=== PATIENT | female | born 1970 | race Two or more races ===

== ENCOUNTER 2022-09-30 12:22 | Emergency (ER) | payer OTHER ==
[~2022-09-30] VITALS: Ht 154.9 cm; Wt 81.0 kg
[2022-09-30 13:28] LABS: Urine Bacteria NONE SEEN /hpf (None Seen); Urine Blood Negative /uL (Negative); Urine Mucus FEW (None Seen); Urine WBC 3 /hpf (0 - 5)
[2022-09-30 13:31] VITALS: BP 152/90
[2022-09-30] MEDS ORDERED: KETOROLAC TROMETH 60MG/2ML VIAL IM ONE (13:45)
[2022-09-30 14:32] LABS: Basophils # (auto) 0 10 ^3/uL (0-0.2); Basophils % (auto) 0.6 % (0.0-2.0); Eosinophils # (auto) 0.1 10 ^3/uL (0-0.8); Eosinophils % (auto) 1.3 % (0.0-7.0); Hematocrit 40.5 % (36.0-46.0); Hemoglobin 14.2 g/dL (12.2-16.2); Lymphocytes % (auto) 41.5 % (10.0-50.0); Mean Corpuscular Hemoglobin 30.3 pg (28.0-32.0); Mean Corpuscular Hgb Conc. 35.1 g/dL (32.0-36.0); Mean Corpuscular Volume 86.3 fL (80.0-100.0); Monocytes # (auto) 0.5 10 ^3/uL (0-1.3); Monocytes % (auto) 6.3 % (0.0-12.0); Neutrophils # (auto) 3.6 10 ^3/uL (1.6-8.6); Neutrophils % (auto) 50.3 % (37.0-80.0); Nucleated Red Blood Cells % 0.1 %; Red Blood Cells 4.69 10^6/uL (4.0-5.20); Red Cell Distribution Width 13.8 % (11.8-14.3); White Blood Cell 7.2 10^3/uL (4.4-10.8)
[2022-09-30 14:42] LABS: BUN/Creatinine Ratio 12.9 (10.0-20.0); Potassium 3.7 mmol/L (3.5-5.1)
[2022-09-30] MEDS ORDERED: CIPR-173 PO (15:18)
[2022-09-30] MEDS ORDERED: METH750T22 PO (15:18)
[2022-09-30] MEDS ORDERED: IBUP800T27 PO (15:18)
== END 2022-09-30 15:32 | disposition home or self-care (01) ==
LOC: ER 12:22
DX: S39.012A Strain of muscle, fascia and tendon of lower back, initial encounter (principal); N30.00 Acute cystitis without hematuria; Z79.899 Other long term (current) drug therapy; X58.XXXA Exposure to other specified factors, initial encounter; Y93.89 Activity, other specified; Y92.89 Other specified places as the place of occurrence of the external cause; Y99.8 Other external cause status
CPT/HCPCS: 36415; 72100; 74176; 80048; 81001; 85025; 96372; 99285; J1885

== ENCOUNTER 2023-03-16 07:54 | Emergency (ER) | payer MEDICAID, OTHER ==
[~2023-03-16] VITALS: Ht 157.5 cm; Wt 81.0 kg
[~2023-03-16 07:54] MED LIST: CIPR-173 PO; IBUP-1456 PO; METH-1182 PO
[2023-03-16 09:01] VITALS: BP 143/76; PULSE 60; RESP 18; TEMP 97.4; O2SAT 98
== END 2023-03-16 09:47 | disposition home or self-care (01) ==
LOC: ER 07:54
DX: S66.811A Strain of other specified muscles, fascia and tendons at wrist and hand level, right hand, initial encounter (principal); Z79.899 Other long term (current) drug therapy; X58.XXXA Exposure to other specified factors, initial encounter; Y93.89 Activity, other specified; Y92.89 Other specified places as the place of occurrence of the external cause; Y99.8 Other external cause status
CPT/HCPCS: 29125; 73110

== ENCOUNTER 2023-05-23 06:14 | Emergency (ER) | payer MEDICAID ==
[~2023-05-23] VITALS: Ht 152.4 cm; Wt 84.2 kg
[2023-05-23 06:55] VITALS: BP 141/88; PULSE 74; RESP 20; TEMP 97.6; O2SAT 97
[2023-05-23] MEDS ORDERED: methylPREDNISolone SOD SUCC 125 MG/2 ML VL IV ONE (07:15)
[2023-05-23] MEDS ORDERED: FAMOTIDINE 20 MG TAB PO ONE (07:15)
[2023-05-23] MEDS ORDERED: diphenhdrAMINE HCL 50 MG/1 ML VL IV ONE (07:15)
[2023-05-23] MEDS ORDERED: LORA-622 PO (07:29)
[2023-05-23] MEDS ORDERED: CALA1SUS2 EX (07:29)
[2023-05-23] MEDS ORDERED: METH4PAK PO (07:29)
== END 2023-05-23 10:35 | disposition home or self-care (01) ==
LOC: ER 06:14
DX: T78.2XXA Anaphylactic shock, unspecified, initial encounter (principal); Z79.2 Long term (current) use of antibiotics; Z79.899 Other long term (current) drug therapy
CPT/HCPCS: 96374; 96375; 99284; J1200; J2930

== ENCOUNTER 2025-03-21 15:29 | Emergency (ER) | payer MEDICAID ==
[~2025-03-21] VITALS: Ht 157.5 cm; Wt 84.0 kg
[~2025-03-21 15:29] MED LIST changes: +CALA1SUS2 EX; +LORA-622 PO; +METH4PAK PO
[2025-03-21 16:10] LABS: Hematocrit 41.8 % (36.0-46.0); Hemoglobin 14.7 g/dL (12.2-16.2); Mean Corpuscular Hemoglobin 29.8 pg (28.0-32.0); Mean Corpuscular Volume 84.8 fL (80.0-100.0); Nucleated Red Blood Cells % 0.2 %
--- NOTE | 2025-03-21 16:12 | ED.PDOC ---
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 Patient reports that she has been experiencing light vaginal spotting for the past week after sexual intercourse. Patient relays that her LMP was in 2018 after a total hysterectomy. Patient states that her bleeding will go from red to pink in color and is heavier with heavy lifting. Patient notes she has associated pelvic pressure pain at this time. Patient denies any history of STI, dizziness, headache, N/V, SOB, dysuria, or syncope. Initial Vitals BP: 150/92 HR: 74 RR: 16 O2: 98% Temp: 97.8F Past Medical History: Asthma Past Surgical History: Hysterectomy 2018, Appendectomy, Breast Augmentation Social History: Denies ETOH, smoking, and drug use. Medications: Reviewed Allergies: NKDA HPI: Poor Historian. REVIEW OF SYSTEMS: CONSTITUTIONAL: Denies acute: fever, diaphoresis, chills, generalized weakness. HEAD: Denies acute: headache, photophobia Eyes: Denies acute: Double vision, vision loss, eye pain, eye discharge. EARS: Denies acute: tinnitus, hearing loss, ear discharge, ear pain, THROAT: Denies acute: sore throat, swelling, difficulty swallowing , pain with swallowing, change in voice. NECK: Denies acute: neck pain, neck swelling, stiff neck. HEART: Denies acute : chest pain, palpitations, LUNGS: Denies acute: SOB, wheezing, cough, hemoptysis ABDOMEN: Denies acute: abdominal pain, Nausea, Vomiting, diarrhea, melena , hematemesis, hematochezia SKIN: Denies acute: rash, redness, lesions, itchiness. EXTREMITIES: Denies acute: calf pain, numbness, tingling, weakness, denies pain in extremity. Denies acute: Low back pain. Neuro: Denies acute: focal neurological deficit, motor or sensory focal neurological deficit, tremors, seizure like activity, confusion, dizziness, change in mental status, loss of bowel or bladder function, cauda equina like symptoms. : Denies acute: dysuria, hematuria, flank pain, increase in urinary frequency. PSYCH: Denies acute: hallucination, suicidal ideation, homicidal ideation. FEMALE: Denies acute: foul odor, unusual discharge. PHYSICAL EXAM: General: ----mild----acute distress, awake and alert. Head: normocephalic, atraumatic. Neck: supple, trachea is midline, no swelling. Throat: Normal phonation. Eyes:, no erythema, no purulent discharge, no proptosis, no icterus. Heart: regular rate, regular rhythm, no significant murmur appreciated. Lungs: no apparent respiratory distress, Able to speak in full sentences. No wheezing, no rhonchi, no crackles. No stridors Clear to auscultation bilaterally. Abdomen: Suprapubic tender to palpation, non distended, soft, no guarding, no rebound, + bowel sounds. Neuro: Awake, Alert, oriented to name, self, situation, follows commands GCS=15. Speech is normal. Skin: no petechia, no purpura, no cyanosis, non-pale, not jaundice. Lower extremities: --no - Pitting edema no deformity, no focal swelling, no calf TTP. Makes eye contact. moves all four extremities. Face: no apparent facial droop. Ambulating in the ED independently. ED COURSE: DISCLAIMER: This medical document was created using an electronic medical record system with voice recognition software and computerized dictation system. Although this document has been carefully reviewed, there might still be some phonetic and typographical errors. Occasional wrong-word or "sound-alike" substitutions may have occurred due to the inherent limitations of voice recognition software. These areas are purely typographical due to imperfections of the software programs and do not reflect any compromise in the patient's medical care. Please read the chart carefully and recognize, using context, where these substitutions have occurred. Chief Complaint: Vaginal Bleed Time Seen by MD: 16:05 Reviewed Notes: Medications, Allergies Allergies: Coded Allergies: NO KNOWN ALLERGIES (Unverified , 09/30/22) Home Meds Active Scripts Nitrofurantoin Monohydrate Mac (Macrobid) 100 Mg Cap, 100 MG PO BID for 7 Days, #14 CAP Prov:TOMMY LAU DO 03/21/25 Calamine-Zinc Oxide (Calamine 8-8 %) 1 Olya Olya, 1 OLYA EX QIDPRN for 30 Days, #1 BOTTLE 0 Refills Prov:SISSY CARRION SENIOR ASP NET DEVELOPER 05/23/23 Loratadine (Claritin) 10 Mg Tab, 1 TAB PO DAILY, #30 TAB 0 Refills Prov:SISSY CARRION SENIOR ASP NET DEVELOPER 05/23/23 Methylprednisolone (Medrol Dosepak) 4 Mg Jesús, 4 MG PO UD, #21 TAB 0 Refills UAD Prov:SISSY CARRION SENIOR ASP NET DEVELOPER 05/23/23 Ciprofloxacin Hcl (Cipro) 500 Mg Tab, 1 TAB PO BID, #14 TAB Prov:FELICITY MUNROE 09/30/22 Methocarbamol (Methocarbamol) 750 Mg Tab, 750 MG PO QHSP PRN, #20 TAB Prov:FELICITY MUNROE 09/30/22 Ibuprofen (Ibuprofen) 800 Mg Tab, 1 TAB PO TID, #30 TAB Prov:FELICITY MUNROE 09/30/22 Information Source: Patient Mode of Arrival: Ambulatory Was a procedure done? Was a procedure done?: No X-Ray, Labs, Meds, VS Vital Signs Date Time Temp Pulse Resp B/P (MAP) Pulse Ox O2 Delivery O2 Flow Rate FiO2 03/21/25 15:32 97.8 74 16 150/92 98 97.8 Lab Test 03/21/25 16:17 03/21/25 15:55 Range/Units Urine Color Yellow Yellow Urine Clarity Turbid H Clear Urine pH 6.0 5.0-9.0 Urine Specific Stanton 1.030 1.001-1.035 Urine Protein 1+ H Negative Urine Ketones Negative Negative Urine Blood 2+ H Negative /uL Urine Nitrite Negative Negative Urine Bilirubin Negative Negative Urine Urobilinogen 2 H Negative mg/dL Urine Leukocyte Esterase 2+ Negative /uL Urine RBC 29 0 - 4 /hpf Urine Microscopic WBC 76 H 0-5 /HPF Urine Squamous Epithelial Cells Mod <5 /hpf Urine Calcium Oxalate Crystals Few None Seen Urine Bacteria None seen None Seen /hpf Urine Mucus Moderate None Seen Urine Glucose Normal Normal mg/dL White Blood Count 5.6 4.4-10.8 10^3/uL Red Blood Count 4.92 4.0-5.20 10^6/uL Hemoglobin 14.7 12.2-16.2 g/dL Hematocrit 41.8 36.0-46.0 % Mean Corpuscular Volume 84.8 80.0-100.0 fL Mean Corpuscular Hemoglobin 29.8 28.0-32.0 pg Mean Corpuscular Hemoglobin Concent 35.2 32.0-36.0 g/dL Red Cell Distribution Width 13.5 11.8-14.3 % Platelet Count 306 140-450 10^3/uL Mean Platelet Volume 6.7 L 6.9-10.8 fL Neutrophils (%) (Auto) 52.2 37.0-80.0 % Lymphocytes (%) (Auto) 38.3 10.0-50.0 % Monocytes (%) (Auto) 6.9 0.0-12.0 % Eosinophils (%) (Auto) 1.6 0.0-7.0 % Basophils (%) (Auto) 1.0 0.0-2.0 % Neutrophils # (Auto) 2.9 1.6-8.6 10 ^3/uL Lymphocytes # (Auto) 2.2 0.4-5.4 10 ^3/uL Monocytes # (Auto) 0.4 0-1.3 10 ^3/uL Eosinophils # (Auto) 0.1 0-0.8 10 ^3/uL Basophils # (Auto) 0.1 0-0.2 10 ^3/uL Nucleated Red Blood Cells 0.2 % Sodium Level 144 136-145 mmol/L Potassium Level 3.6 3.5-5.1 mmol/L Chloride Level 103 98-107 mmol/L Carbon Dioxide Level 31 20-31 mmol/L Anion Gap 10 5-15 Blood Urea Nitrogen 9 9-23 mg/dL Creatinine 0.87 0.550-1.02 mg/dL Glomerular Filtration Rate Calc 79 >90 mL/min BUN/Creatinine Ratio 10.3 10.0-20.0 Serum Glucose 88 74-106 mg/dL Calcium Level 9.6 8.7-10.4 mg/dL Total Bilirubin 0.5 0.2-1.0 mg/dL Aspartate Amino Transferase (AST) 18 13-40 U/L Alanine Aminotransferase (ALT) 21 7-40 U/L Alkaline Phosphatase 98 46-116 U/L Total Protein 7.8 5.7-8.2 g/dL Albumin 4.8 3.2-4.8 g/dL [address] [address] Ph: [phone] DIAGNOSTIC IMAGING Diagnostic Imaging Report : [id number] Signed PATIENT: TAMIA CHU ACCT: [id number] UNIT: [id number] : 1970 LOC: ER ROOM / BED: / AGE / SEX: 55 / F ADM STATUS: REG ER SERVICE 0000 ORDERING PHYSICIAN: TOMMY LAU DO PROCEDURE(s): PELUS - PELVIC REASON: VAG BLEED ORDER NUMBER(s): [id number], ACCESSION NUMBER(s): [id number] CLINICAL HISTORY: VAG BLEED TECHNIQUE: Ultrasound examination of the female pelvis was performed transabdominally. COMPARISON: US ABDOMEN LIMITED on DOS: 05/04/24, CT CT AB PEL WO CON-NO ORAL OR IV on DOS: 09/30/22 FINDINGS: The uterus is absent. There is no abnormal soft tissue thickening or lymph node. The right ovary measures 2.8 x 2.1 x 2.0 cm. The left ovary measures 2.3 x 1.8 x 1.8 cm. Normal color doppler flow and vascular waveforms. There is no free fluid. IMPRESSION: Hysterectomy.i ATED BY: ZEESHAN HICKEY MD DICTATED DATE/TIME: 03/21/251728 SIGNED BY: ZEESHAN HICKEY MD SIGNED DATE/TIME: 03/21/251728 CC: Time of 1ST Reevaluation: 17:04 Reevaluation 1ST: Unchanged Patient Education/Counseling: Diagnosis, Treatment Family Education/Counseling: No Family Present Departure 1 Departure Time of Disposition: 17:03 Impression: Primary Impression: Postcoital bleeding Additional Impression: UTI (urinary tract infection) Disposition: 01 HOME / SELF CARE / HOMELESS Condition: Stable Additional Instructions: Additional instructions: Please read all instructions provided in this packet carefully. You MUST follow-up with your primary care/family doctor in 1 to 2 days. If you are unable to see your primary care/family doctor, please return to our emergency room for re-assessment and re-evaluation in 1 to 2 days. Return to the emergency room here in our facility or to the nearest ER [facility] if your symptoms change or worsen. CONSULTATIONS: you MUST Follow-up for consultation as soon as possible with: --OB Gyne doctor in 1-2 days. Please call for appointment. You MUST call the consultants office yourself to make an appointment. You may need to arrange that through your insurance and/or your primary/family doctor. If you are unable to see the market intelligence consultant in 1 to 2 days, you must return to our emergency room (or any other ER of your choice) for re-assessment and re- evaluation. Adequate fluid hydration. Although you have been discharged from the Emergency Department, this does not mean that you have a "clean bill of health". No definitive diagnosis for your symptoms has been made today. It is possible that you are in the process of developing a serious illness. This is why you must return to the ED without fail if any new or worsening symptoms develop. Absolute pelvic rest. Below is a copy of your radiological report for follow up: [place] [address] Ph: [phone] DIAGNOSTIC IMAGING Diagnostic Imaging Report : [id number] Signed PATIENT: TAMIA CHU ACCT: [id number] UNIT: [id number] : 1970 LOC: ER ROOM / BED: / AGE / SEX: 55 / F ADM STATUS: REG ER SERVICE 0000 ORDERING PHYSICIAN: TOMMY LAU DO PROCEDURE(s): PELUS - PELVIC REASON: VAG BLEED ORDER NUMBER(s): [id number], ACCESSION NUMBER(s): [id number] CLINICAL HISTORY: VAG BLEED TECHNIQUE: Ultrasound examination of the female pelvis was performed transabdominally. COMPARISON: US ABDOMEN LIMITED on DOS: 05/04/24, CT CT AB PEL WO CON-NO ORAL OR IV on DOS: 09/30/22 FINDINGS: The uterus is absent. There is no abnormal soft tissue thickening or lymph node. The right ovary measures 2.8 x 2.1 x 2.0 cm. The left ovary measures 2.3 x 1.8 x 1.8 cm. Normal color doppler flow and vascular waveforms. There is no free fluid. IMPRESSION: Hysterectomy.i ATED BY: ZEESHAN HICKEY MD DICTATED DATE/TIME: 03/21/25 3953 SIGNED BY: ZEESHAN HICKEY MD SIGNED DATE/TIME: 03/21/25 9495 CC: e-Prescriptions Nitrofurantoin Monohydrate Mac (Macrobid) 100 Mg Cap 100 MG PO BID for 7 Days, #14 CAP Prov: TOMMY LAU DO 03/21/25 Discharged With: Self Critical Care Note Critical Care Time?: No I personally scribed for TOMMY LAU DO ([email or web address]) on 03/21/25 at 16:12. Electronically submitted by Ki Alicea ([email or web address]). I personally scribed for TOMMY LAU DO ([email or web address]) on 03/21/25 at 17:44. Electronically submitted by Ki Alicea ([email or web address]). TOMMY LAU DO Mar 21, 2025 16:12
[2025-03-21 16:24] LABS: Alanine Aminotransferase 21 U/L (7-40); Alkaline Phosphatase 98 U/L (46-116); Anion Gap 10 (5-15); BUN/Creatinine Ratio 10.3 (10.0-20.0); Calcium 9.6 mg/dL (8.7-10.4); Carbon Dioxide 31 mmol/L (20-31); Chloride 103 mmol/L (98-107); Glucose 88 mg/dL (74-106); Potassium 3.6 mmol/L (3.5-5.1); Sodium 144 mmol/L (136-145); Total Protein 7.8 g/dL (5.7-8.2)
[2025-03-21 16:25] LABS: Bilirubin, Total 0.5 mg/dL (0.2-1.0)
[2025-03-21 16:30] LABS: Albumin 4.8 g/dL (3.2-4.8); Blood Urea Nitrogen 9 mg/dL (9-23)
--- NOTE | 2025-03-21 17:32 | DVH ---
CLINICAL HISTORY: VAG BLEED TECHNIQUE: Ultrasound examination of the female pelvis was performed transabdominally. COMPARISON: US ABDOMEN LIMITED on DOS: 05/04/24, CT CT AB PEL WO CON-NO ORAL OR IV on DOS: 09/30/22 FINDINGS: The uterus is absent. There is no abnormal soft tissue thickening or lymph node. The right ovary measures 2.8 x 2.1 x 2.0 cm. The left ovary measures 2.3 x 1.8 x 1.8 cm. Normal color doppler flow and vascular waveforms. There is no free fluid. IMPRESSION: Hysterectomy.i
[2025-03-21 18:32] LABS: Urine Protein, UAD 1+ (Negative)
[2025-03-21] MEDS ORDERED: NITR-87 PO (19:06)
[2025-03-21 20:11] VITALS: BP 155/89; PULSE 69; RESP 18; TEMP 98.9; O2SAT 97
[2025-03-21] MEDS: SODIUM CHLORIDE 0.9% 1,000 ML IV ONE (20:16)
== END 2025-03-21 21:16 | disposition home or self-care (01) ==
LOC: ER 15:29
DX: N93.0 Postcoital and contact bleeding (principal); N39.0 Urinary tract infection, site not specified; J45.909 Unspecified asthma, uncomplicated; Z79.899 Other long term (current) drug therapy; Z90.710 Acquired absence of both cervix and uterus; Z90.49 Acquired absence of other specified parts of digestive tract; Z79.1 Long term (current) use of non-steroidal anti-inflammatories (NSAID)
CPT/HCPCS: 36415; 76856; 80053; 81001; 85025; 86850; 86900; 86901; 96360; 99284; J7030